=== PATIENT | male | born 1955 | race Hispanic/Latino ===

== ENCOUNTER 2018-09-19 07:05 | Day surgery (SDC) | payer MEDICAID ==
--- NOTE | 2018-09-14 14:35 | NUR ---
notified doctor Doctor of bs being 437, and that pt had just eat. Per md no new orders just have pt keep npo after midnight the day of procedure and have pt use sliding scale for the sugar of 437. Advised pt no concerns voiced.
[2018-09-14 15:58] VITALS: BP 159/79
[2018-09-14 15:59] LABS: BASOPHILS % (AUTO) 0.5 % (0.0-5.0); EOSINOPHILS % (AUTO) 2.1 % (0.0-8.0); LYMPHOCYTES % (AUTO) 24.5 % (21.0-51.0); MEAN CORPUSCULAR HEMOGLOBIN 29.5 pg (27.0-33.0); MEAN CORPUSCULAR HGB CONC 33.6 g/dL (32.0-36.0); MEAN CORPUSCULAR VOLUME 87.7 fL (79-99); MONOCYTES % (AUTO) 8.7 % (3.0-13.0); NEUTROPHILS % (AUTO) 64.2 % (40.0-77.0); NUCLEATED RED BLOOD CELLS 0.1 % (0.0-0.19); PLATELET COUNT (AUTO) 223 K/uL (130-400); RED BLOOD CELL COUNT(AUTO) 5.01 MIL/uL (4.50-6.20); RED CELL DISTRIBUTION WIDTH 14.5 % (11.0-15.5); WHITE BLOOD COUNT (AUTO) 7.8 K/uL (4.8-10.8)
[2018-09-14 16:22] LABS: POTASSIUM 3.9 mmol/L (3.5-5.1)
[2018-09-19] VITALS (14 sets, daily range): BP systolic 135–156; BP diastolic 72–90
[~2018-09-19] VITALS: Ht 177.8 cm; Wt 116.6 kg
[~2018-09-19 07:05] MED LIST: ACET-2247 PO; AMLO10TA4 PO; ATOR40TA71 PO; CLOB30CR5 TP; CLON0.1T PO; DUTA.5 PO; FLUT50BL IH; FURO20TA4 PO; GABA-531 PO; INSU100C6 SQ; INSU10VI3 SQ; LINA5TAB PO; LOSA1TAB42 PO; METF-446 PO; METO100T14 PO; SERT50TA12 PO; TAMS-1 PO; TRIA10PO3 TP
[2018-09-19] MEDS ORDERED: KETAMINE 50MG/ML SYRINGE 50 MG/ML DISP.SYRIN IV ONE (07:54)
[2018-09-19] MEDS ORDERED: LIDOCAINE PF 2% 5ML ABBOJECT ONE ×2 (07:55→07:56)
[2018-09-19] MEDS ORDERED: MIDAZOLAM HCL 1 MG/ML 2ML VIAL ONE (07:55)
[2018-09-19] MEDS ORDERED: PROPOFOL 10 MG/ML 20ML VIAL IV ONE (07:55)
[2018-09-19] MEDS ORDERED: DEXAMETHASONE SOD PHOSPHATE 10MG/ML 1ML VIAL ONE (07:55)
[2018-09-19] MEDS ORDERED: ONDANSETRON HCL 4 MG/2 ML VIAL ONE (07:55)
[2018-09-19] MEDS ORDERED: FENTANYL CITRATE PF 50 MCG/1 ML 2ML VIAL ONE (07:56)
[2018-09-19] MEDS ORDERED: MEROPENEM 1 GM VIAL IVP SCH (08:00)
[2018-09-19] MEDS ORDERED: INVANZ 1GM+NS 50ML IVPB 50 ML IV SCH (08:00)
[2018-09-19] MEDS ORDERED: SODIUM CHLORIDE 0.9% 1000ML 1,000 ML IV ONE (08:05)
--- NOTE | 2018-09-19 08:19 | NUR ---
GLUCOSE INFORMED DR. ROACH AND DR. LAKE OF ABNORMAL GLUCOSE. NO ORDERS RECEIVED.
[2018-09-19] MEDS ORDERED: LIDOCAINE HCL 2% PF 20 ML JEL DISP.SYRIN MM ONE (08:21)
[2018-09-19] MEDS ORDERED: INSULIN HUMULIN R 100 UNIT/ML 3ML ONE (09:12)
--- NOTE | 2018-09-19 09:30 | NUR ---
PT VOIDED LIGHT PINK URINE. SEE I/O. Addendum: 09/19/18 at 1034 by NORRIS YOU RN RN Amended: Links added.
== END 2018-09-19 11:07 | disposition home or self-care (01) ==
LOC: DAH 07:05
PROVIDERS: ATTEND Surgery
DX: N40.1 Benign prostatic hyperplasia with lower urinary tract symptoms (principal); N13.8 Other obstructive and reflux uropathy; Z79.899 Other long term (current) drug therapy; Z98.890 Other specified postprocedural states; E11.9 Type 2 diabetes mellitus without complications; E66.01 Morbid (severe) obesity due to excess calories; I10 Essential (primary) hypertension
CPT/HCPCS: 36415; 52000; 80048; 82948 ×3; 84153; 85025; 87088; A4358; J1100; J1335; J1815; J2001 ×2; J2185; J2250; J2405; J2704; J3010; J3490; J7030 ×2

== ENCOUNTER 2020-10-17 07:20 | Day surgery (SDC) | payer MEDICAID ==
[2020-10-11 13:20] LABS: BASOPHILS % (AUTO) 0.6 % (0.0-5.0); EOSINOPHILS % (AUTO) 1.4 % (0.0-8.0); HEMATOCRIT 34.8 % (42-54); LYMPHOCYTES % (AUTO) 16.4 % (21.0-51.0); MEAN CORPUSCULAR HEMOGLOBIN 29.3 pg (27.0-33.0); MEAN CORPUSCULAR HGB CONC 33.3 g/dL (32.0-36.0); MEAN CORPUSCULAR VOLUME 87.9 fL (79-99); MONOCYTES % (AUTO) 8.4 % (3.0-13.0); NEUTROPHILS % (AUTO) 71.3 % (40.0-77.0); PLATELET COUNT (AUTO) 257 K/uL (130-400); RED BLOOD CELL COUNT(AUTO) 3.96 MIL/uL (4.50-6.20); RED CELL DISTRIBUTION WIDTH 13.9 % (11.0-15.5); WHITE BLOOD COUNT (AUTO) 8.5 K/uL (4.8-10.8)
[2020-10-11 13:29] LABS: CREATININE 1.3 mg/dL (0.5-1.5); POTASSIUM 3.7 mmol/L (3.5-5.1)
[2020-10-11 13:39] LABS: INR 0.97 (0.85-1.15); PROTHROMBIN TIME 10.6 SEC (9.6-11.6)
[2020-10-11 13:40] LABS: PARTIAL THROMBOPLASTIN TIME 26.5 SEC (26.3-35.5)
[2020-10-11 13:56] LABS: APPEARANCE,URINE Clear (CLEAR); BILIRUBIN,URINE Negative (NEGATIVE); COLOR,URINE Yellow (YELLOW); GLUCOSE, URINE (UA) >=1000 mg/dL (NEGATIVE); KETONES,URINE Negative (NEGATIVE); LEUKOCYTE ESTERASE ,URINE Negative (NEGATIVE); NITRATE,URINE Negative (NEGATIVE); OCCULT BLOOD,URINE Negative (NEGATIVE); PROTEIN,URINE Trace mg/dL (NEGATIVE); UROBILINOGEN,URINE 0.2 mg/dL (0.2-1.0)
[2020-10-11 14:06] LABS: BACTERIA,URINE Rare /HPF (None Seen); RBC,URINE 0-1 /HPF (0-1); SQUAMOUS EPITHELIAL CELL,UR Rare /HPF (0-2); WBC,URINE 0-1 /HPF (0-1)
[2020-10-14 12:28] VITALS: BP 135/70
[2020-10-16 15:39] VITALS: BP 135/70
[2020-10-17] VITALS (18 sets, daily range): BP systolic 102–134; BP diastolic 51–75
[~2020-10-17] VITALS: Ht 176.5 cm; Wt 116.8 kg
[~2020-10-17 07:20] MED LIST changes: -ACET-2247 PO; -AMLO10TA4 PO; -ATOR40TA71 PO; -CLOB30CR5 TP; +CYCL10TA7 PO; -FLUT50BL IH; -FURO20TA4 PO; +GLIPIZIDE PO; +HYDR-4154 PO; +ICOS1CAP PO; -INSU100C6 SQ; +INSU100I3 SQ; -INSU10VI3 SQ; -LINA5TAB PO; +LOSA100T58 PO; -LOSA1TAB42 PO; +METO-409 PO; -METO100T14 PO; +SERT-439 PO; -SERT50TA12 PO; +TORS20TA4 PO; +TRAM50TA4 PO; -TRIA10PO3 TP
[2020-10-17] MEDS ORDERED: SODIUM CHLORIDE 0.9% 1000ML 1,000 ML IV ONE (08:27)
[2020-10-17] MEDS: CEFTRIAXONE SODIUM 1 GM IVP SCH ×2 (09:43→10:07)
[2020-10-17] MEDS: GENTAMICIN 80 MG/NS 100 ML PB 100 ML IV SCH ×2 (09:44→09:51)
[2020-10-17] MEDS ORDERED: NEOSTIGMINE 5MG/5ML SYR IV ONE (09:47)
[2020-10-17] MEDS ORDERED: DEXAMETHASONE SOD PHOSPHATE 10MG/ML 1ML VIAL ONE (09:47)
[2020-10-17] MEDS ORDERED: MIDAZOLAM HCL 1 MG/ML 2ML VIAL ONE (09:47)
[2020-10-17] MEDS ORDERED: ONDANSETRON HCL 4 MG/2 ML VIAL ONE (09:47)
[2020-10-17] MEDS ORDERED: FENTANYL CITRATE PF 50 MCG/1 ML 2ML VIAL ONE (09:47)
[2020-10-17] MEDS ORDERED: LIDOCAINE PF 2% 5ML ABBOJECT ONE (09:47)
[2020-10-17] MEDS ORDERED: ROCURONIUM 10MG/1ML SYR 10 MG/ML ML ONE (09:47)
[2020-10-17] MEDS ORDERED: GLYCOPYRROLATE 1 MG/5 ML SYRINGE ONE (09:47)
[2020-10-17] MEDS ORDERED: SUCCINYLCHOLINE 200MG/10ML SYR ONE ×2 (09:47→09:48)
[2020-10-17] MEDS ORDERED: PROPOFOL 10 MG/ML 20ML VIAL IV ONE ×2 (09:47→10:36)
[2020-10-17] MEDS ORDERED: MEPERIDINE-PF 25 MG/ML SYG ONE ×2 (11:20→11:37)
== END 2020-10-17 13:30 | disposition home or self-care (01) ==
LOC: DAH 07:20
PROVIDERS: ATTEND Urology
DX: N40.1 Benign prostatic hyperplasia with lower urinary tract symptoms (principal); Z20.822 Contact with and (suspected) exposure to COVID-19; N39.41 Urge incontinence; I10 Essential (primary) hypertension; E11.9 Type 2 diabetes mellitus without complications; E66.9 Obesity, unspecified; E78.5 Hyperlipidemia, unspecified; J44.9 Chronic obstructive pulmonary disease, unspecified; Z79.01 Long term (current) use of anticoagulants; Z79.899 Other long term (current) drug therapy
CPT/HCPCS: 36415; 52648; 71045; 80048; 81001; 82948 ×2; 85025; 85610; 85730; 87088; 93005; A4215; A4221; A4222; A4223; A4335; A4354; A4358 ×2; A4600; A4663; A6260; C9803; J0330 ×2; J0696; J1100; J1580; J2001; J2175 ×2; J2250; J2405; J2704 ×2; J2710; J3010; J3490; J7030 ×2; U0003